=== PATIENT | male | born 1955 | race Caucasian/White ===

== ENCOUNTER → 2017-07-01 | Outpatient (CLI) | payer BC ==
--- NOTE | 2017-07-01 19:02 | Diagnostic Imaging Report ---
PROCEDURE: CT head without contrast. TECHNIQUE: Multiple contiguous axial images were obtained through the brain without the use of intravenous contrast. INDICATION: Dizziness. Headache. FINDINGS: There is no intracranial hemorrhage, edema, or mass effect. The brain parenchyma appears unremarkable. No hydronephrosis. No extra-axial fluid collection is seen. The calvarium and the orbits appear grossly unremarkable. There is mild mucosal thickening in the left mastoid air cells inferiorly and also in the anterosuperior aspect of the nasal cavity bilaterally. IMPRESSION: No intracranial abnormality. Mild mucosal thickening in the left mastoid air cells and anterior and superiorly in the nasal cavities. Dictated by: Dictated on workstation # [id number]
== END ==
LOC: RAD 12:52
PROVIDERS: ATTEND Nurse Practitioner Family
DX: R42 Dizziness and giddiness (principal)
CPT/HCPCS: 70450

== ENCOUNTER 2018-12-21 15:27 | Outpatient (CLI) | payer BC, OTHER | END 2018-12-21 16:00 | disposition home or self-care (01) | LOC: SLEEP 15:27 | PROVIDERS: ATTEND Otolaryngology Otolaryngology/Facial Plastic Surgery | DX: G47.33 Obstructive sleep apnea (adult) (pediatric) (principal) ==

== ENCOUNTER 2019-08-02 05:30 | Outpatient (CLI) | payer BC, OTHER ==
[~2019-08-02] VITALS: Ht 193 cm; Wt 136.3 kg
[2019-08-02] MEDS ORDERED: EMPA10TA PO (10:25)
[2019-08-02] MEDS ORDERED: ENAL20TA PO (10:25)
[2019-08-02] MEDS ORDERED: SITA1TBM7 PO (10:25)
[2019-08-02] MEDS ORDERED: HYDR12.5 PO (10:25)
[2019-08-02] MEDS ORDERED: ATOR20TA66 PO (10:25)
== END 2019-08-02 10:33 | disposition home or self-care (01) ==
LOC: PREOP 05:30
PROVIDERS: ATTEND Otolaryngology Otolaryngology/Facial Plastic Surgery
DX: Z01.818 Encounter for other preprocedural examination (principal)

== ENCOUNTER 2019-08-04 07:26 | Day surgery (SDC) | payer BC, OTHER ==
[~2019-08-04] VITALS: Ht 193 cm; Wt 136.3 kg
[2019-08-04] VITALS (12 sets, daily range): BP systolic 141–205; BP diastolic 66–97
[~2019-08-04 07:26] MED LIST: ATOR20TA66 PO; EMPA10TA PO; ENAL20TA PO; HYDR12.5 PO; SITA1TBM7 PO
[2019-08-04] MEDS ORDERED: LACTATED RINGERS 1,000 ML IV PRN (07:40)
[2019-08-04] MEDS ORDERED: LEVOFLOXACIN 500 MG/100 ML IV 100 ML IV ONE (07:45)
[2019-08-04 08:11] LABS: BASOPHILS # (AUTO) 0.1 10^3/uL (0.0-0.1); BASOPHILS % (AUTO) 1 % (0-10); EOSINOPHILS # (AUTO) 0.3 10^3/uL (0.0-0.3); EOSINOPHILS % (AUTO) 6 % (0-10); HEMATOCRIT 43 % (40-54); HEMOGLOBIN 15.1 G/DL (13.3-17.7); LYMPHOCYTES # (AUTO) 1.5 X 10^3 (1.0-4.0); LYMPHOCYTES % (AUTO) 27 % (12-44); MEAN CORPUSCULAR HEMOGLOBIN 29 PG (25-34); MEAN CORPUSCULAR HGB CONC 35 G/DL (32-36); MEAN CORPUSCULAR VOLUME 82 FL (80-99); MEAN PLATELET VOLUME 9.2 FL (7.4-10.4); MONOCYTES # (AUTO) 0.5 X 10^3 (0.0-1.0); MONOCYTES % (AUTO) 9 % (0-12); NEUTROPHILS # (AUTO) 3.2 X 10^3 (1.8-7.8); NEUTROPHILS % (AUTO) 57 % (42-75); PLATELET COUNT 261 10^3/uL (130-400); RED CELL DISTRIBUTION WIDTH 13.7 % (10.0-14.5); WHITE BLOOD COUNT 5.7 10^3/uL (4.3-11.0)
--- NOTE | 2019-08-04 08:31 | Progress Note-Pre Operative ---
Pre-Operative Progress Note H&P Reviewed The H&P was reviewed, patient examined and no changes noted. Date Seen by Provider: Aug 04, 2019 Time Seen by Provider: 08:20 Date H&P Reviewed: Aug 04, 2019 Time H&P Reviewed: 08:20 Pre-Operative Diagnosis: Bilat CVhronic Sinusitis, Deviatedf septum, Bilat Hyper of Inf Turbs ESME DAMON MD Aug 04, 2019 08:31 POS
[2019-08-04 08:33] LABS: BUN/CREATININE RATIO 24; CALCIUM 9.7 MG/DL (8.5-10.1); CARBON DIOXIDE 20 MMOL/L (21-32); CHLORIDE 105 MMOL/L (98-107); CREATININE SERUM 0.78 MG/DL (0.60-1.30); GFR ESTIMATED > 60; GLUCOSE 166 MG/DL (70-105); POTASSIUM 4.3 MMOL/L (3.6-5.0); SODIUM 139 MMOL/L (135-145)
[2019-08-04] MEDS ORDERED: COCAINE HCL 4% 2 ML SYR ONE (08:35)
[2019-08-04] MEDS ORDERED: LIDOCAINE/EPI 1%-1:100,000 (XYLOCAINE) 20ML ONE (08:35)
[2019-08-04] MEDS ORDERED: PHENYLEPHRINE 0.5% NASAL SPR (NEO-SYNEPHRINE) REG ONE (08:35)
[2019-08-04] MEDS ORDERED: ONDANSETRON 4 MG/2 ML (SDV) Z0FRAN ONE (08:36)
[2019-08-04] MEDS ORDERED: proPOfol 200 MG/20 ML (DIPRIVAN) VIAL IV ONE ×2 (08:36→12:07)
[2019-08-04] MEDS ORDERED: fentaNYL INJECTION 100 MCG/2 ML AMP ONE (08:36)
[2019-08-04] MEDS ORDERED: SEVOFLURANE (ULTANE) 15 ML INHAL SOLN ONE ×3 (08:36→12:07)
[2019-08-04] MEDS ORDERED: LIDOCAINE PF 2% 5 ML (XYLOCAINE) VIAL ONE (08:36)
[2019-08-04] MEDS ORDERED: ROCURONIUM 10 MG/ML 5 ML SYRINGE IV ONE (08:37)
[2019-08-04] MEDS ORDERED: MIDAZOLAM 2 MG/2 ML (VERSED) VIAL ONE (08:37)
[2019-08-04] MEDS ORDERED: BSS 15 ML ONE (11:06)
[2019-08-04] MEDS ORDERED: D5 1/2 NS W/KCL 20 MEQ/L 1,000 ML IV SCH (11:12)
--- NOTE | 2019-08-04 11:12 | Progress Note-Post Operative ---
Post-Operative Progess Note Surgeon (s)/Chinese Teacher (s) Surgeon ESME DAMON MD Chinese Teacher n/a Pre-Operative Diagnosis Bilat CVhronic Sinusitis, Deviatedf septum, Bilat Hyper of Inf Turbs Post-Operative Diagnosis same Post-Op Procedure Note Date of Procedure: Aug 04, 2019 Name of Procedure Performed: Bilat ESS with REmoval of Nasal POlyps, Nasal Septoplasty, Bilat PArtial REduction of the INf Turbinates Description & Findings Description and Findings: n/a Anesthesia Type get Estimated Blood Loss 200cc Packing DNP bilaterally. Specimen(s) collected/removed bilat chronic sinus disease , polyps, nasal septum ESME DAMON MD Aug 04, 2019 11:11 POS
[2019-08-04] MEDS ORDERED: predniSONE 20 MG TAB PO ONE (11:15)
[2019-08-04] MEDS ORDERED: ACETAMINOPHEN 325 MG TABLET PO PRN (11:15)
[2019-08-04] MEDS ORDERED: PROMETHAZINE INJ 25 MG/ML (PHENERGAN) AMP IVP PRN (11:15)
[2019-08-04] MEDS ORDERED: HYDROcodone/APAP 5 MG/325 MG (LORTAB) TAB PO PRN (11:15)
[2019-08-04] MEDS ORDERED: morphine INJ 10 MG/ML 1ML (SYR OR VIAL) IVP ONE (11:30)
[2019-08-04] MEDS ORDERED: MEPERIDINE (DEMEROL) INJ 50 MG/ML IVP ONE (11:30)
[2019-08-04] MEDS ORDERED: fentaNYL INJECTION 100 MCG/2 ML AMP IVP ONE (11:30)
[2019-08-04] MEDS ORDERED: ONDANSETRON 4 MG/2 ML (SDV) Z0FRAN IVP PRN (11:30)
[2019-08-04] MEDS ORDERED: LABETALOL HCL 20 MG/4 ML VIAL ONE (11:58)
[2019-08-04] MEDS ORDERED: LABETALOL HCL 100 MG/20 ML VIAL IV PRN (12:00)
--- NOTE | 2019-08-04 12:06 | Anesthesia-General Post-Op ---
General Patient Condition Mental Status/LOC: Same as Preop Cardiovascular: Satisfactory Nausea/Vomiting: Absent Respiratory: Satisfactory Pain: Controlled Complications: Absent Post Op Complications Complications None Follow Up Care/Instructions Patient Instructions None needed. Anesthesia/Patient Condition Patient Condition Patient is doing well, no complaints, stable vital signs, no apparent adverse anesthesia problems. No complications reported per nursing. CHANCE HOOPER CRNA Aug 04, 2019 12:06 POS
[2019-08-04] MEDS ORDERED: SUCCINYLCHOLINE INJ 100 MG/5 ML SYR ONE (12:08)
[2019-08-04] MEDS ORDERED: HYDROcodone/APAP 5 MG/325 MG (LORTAB) TAB ONE (12:55)
[2019-08-04] MEDS ORDERED: HYDR-3812 PO (13:03)
[2019-08-04] MEDS ORDERED: LEVO500T2 PO (13:03)
--- NOTE | 2019-08-04 13:25 | NUR ---
mustache dressing changed 4 times for minimal continuous dripping of bloody drainage from the nose.
== END 2019-08-04 14:20 | disposition home or self-care (01) ==
LOC: SDC 07:26
PROVIDERS: ATTEND Otolaryngology Otolaryngology/Facial Plastic Surgery
DX: J34.2 Deviated nasal septum (principal); J32.9 Chronic sinusitis, unspecified; J34.3 Hypertrophy of nasal turbinates; I10 Essential (primary) hypertension; J44.9 Chronic obstructive pulmonary disease, unspecified; K21.9 Gastro-esophageal reflux disease without esophagitis; M19.90 Unspecified osteoarthritis, unspecified site; E11.42 Type 2 diabetes mellitus with diabetic polyneuropathy; Z90.49 Acquired absence of other specified parts of digestive tract; Z88.0 Allergy status to penicillin; Z87.891 Personal history of nicotine dependence; Z79.899 Other long term (current) drug therapy
CPT/HCPCS: 36415; 80048; 82962; 85025; 87081

== ENCOUNTER 2019-08-25 19:28 | Outpatient (CLI) | payer BC, OTHER ==
[~2019-08-25 19:28] MED LIST changes: +HYDR-3812 PO; +LEVO500T2 PO
== END 2019-08-26 04:15 | disposition home or self-care (01) ==
LOC: SLEEP 19:28
PROVIDERS: ATTEND Otolaryngology Otolaryngology/Facial Plastic Surgery
DX: G47.33 Obstructive sleep apnea (adult) (pediatric) (principal); G47.10 Hypersomnia, unspecified; J34.2 Deviated nasal septum; J34.3 Hypertrophy of nasal turbinates; J32.9 Chronic sinusitis, unspecified; E11.9 Type 2 diabetes mellitus without complications; E66.3 Overweight
CPT/HCPCS: 95810

== ENCOUNTER → 2020-03-27 | Outpatient (REF) ==
[~2020-03-27] MED LIST changes: +ACHD5005 PO; -HYDR-3812 PO
--- NOTE | 2020-03-27 15:53 | Diagnostic Imaging Report ---
EXAMINATION: Magnetic resonance imaging of the left shoulder without contrast. DATE: March 27, 2020. COMPARISON: None. HISTORY: 64-year-old male, left shoulder pain. TECHNIQUE: Magnetic Resonance Imaging sequences were performed of the shoulder without contrast. FINDINGS: ROTATOR CUFF, LIGAMENTS, TENDONS, AND MUSCLES: There is very mild supraspinatus tendinopathy. The infraspinatus, subscapularis, and teres minor tendons are intact. There is normal rotator cuff muscle bulk and signal. LONG HEAD OF BICEPS: The biceps labral attachment and long head of the biceps tendon is intact. The long head of the biceps tendon is normally positioned within the bicipital groove. GLENOHUMERAL JOINT: The humeral head is superiorly subluxed. The labrum is grossly intact. There is no identified paralabral cyst. There is no visible cartilage defect. There is minimal osteophyte formation arising from the inferior aspect of the humeral head. There is no joint effusion. ACROMIOCLAVICULAR JOINT: The acromioclavicular joint is normally aligned. The coracoclavicular and coracoacromial ligaments are intact. There are moderate to severe acromioclavicular degenerative changes with osteophytes extending approximately 3 mm below the joint margin. BONE: There is no os acromiale. There are subcortical cystic changes in the superior humeral head underlying the supraspinatus and infraspinatus tendon insertions. There is no acute fracture, bone contusion or evidence of osteonecrosis. BURSAE AND SOFT TISSUES: The bursae and soft tissue surrounding the shoulder are unremarkable. IMPRESSION: 1. Very mild supraspinatus tendinopathy. Negative for rotator cuff tendon tear. 2. Moderate to severe acromioclavicular degenerative changes with osteophytes extending 3 mm below the joint margin. 3. Very mild glenohumeral osteoarthritis. 4. No acute fracture, bone contusion or evidence of osteonecrosis. 5. The humeral head is superiorly subluxed. Dictated by: Dictated on workstation # [id number]
== END ==
LOC: RAD 14:03
PROVIDERS: ATTEND Nurse Practitioner Family
DX: M19.012 Primary osteoarthritis, left shoulder (principal); M25.812 Other specified joint disorders, left shoulder; M25.712 Osteophyte, left shoulder
CPT/HCPCS: 73221